=== PATIENT | male | born 1980 | race Caucasian/White ===

== ENCOUNTER → 2018-07-17 | Outpatient (CLI) | payer BC, OTHER ==
[~2018-07-17] VITALS: Ht 182.9 cm; Wt 104.3 kg
[~2018-07-17] MED LIST: NOHOMEMEDICATIONS; XANAX 0.5 MG0.5 MG PO
--- NOTE | ~2018-07-17 | HPC ---
[facility] [place] [address] PAIN MANAGEMENT CONSULTATION Name: YOGI WALKER Room #: REG [facility] Travon.#: [id number] Admission: 07/17/18 Attend Phys: Andrea Nicole MD Discharge: Date of : 84 Report #: [id number] THIS REPORT FOR: //name// CC: Felton Nicole DATE OF SERVICE: 07/17/2018 CHIEF COMPLAINT: Recurrent low back pain with radiculopathy. The patient is a pleasant 37-year-old who I treated successfully with an epidural injection many years ago. He now has recurrent pain into the left hip radiating into the L5 distribution. He has not had a recent MRI. This is a pain that has been bothering him since he was in college. In fact looking through his records, the last x-rays we have are in 2011. He has tried now for several weeks to resolve this pain without benefit of medication or exercise and is here today for hopeful resolution with epidural injection. PHYSICAL EXAMINATION: Blood pressure 133/88, heart rate 72, respirations 16 and O2 sat 97. Pain intensity 5/10. He moves from sitting to standing position and ambulates without difficulty. He has a good range of motion of the lumbar spine. Deep tendon reflexes are normal. Straight leg raising on the left reproduces a radicular pain into the left leg in the L5 distribution. Sensation is intact. Deep tendon reflexes are normal in the knees and ankles. He has a scar around his abdomen from a recent abdominoplasty. IMPRESSION: Chronic recurring low back pain with radiculopathy into the left L4-L5 distribution. RECOMMENDATIONS: 1. Epidural steroid injection under fluoroscopic guidance. 2. Continue with regular exercise including stretching, yoga and aerobic component. PROCEDURE: After informed consent, he was taken to the fluoroscopic suite, placed prone, skin prepped with ChloraPrep. Skin was anesthetized over the L4-L5 interspace to the left of midline. A 20-gauge Tuohy epidural needle advanced first attempt into the epidural space with loss of resistance technique. There was no blood or CSF aspirated. 1 mL of Omnipaque injected. Good spread of dye observed in the epidural space, was followed by 3 mL of 0.5% [address] [address] PAIN MANAGEMENT CONSULTATION Name: YOGI WALKER Room #: REG [facility].#: [id number] Admission: 07/17/18 Attend Phys: Andrea Nicole MD Discharge: Date of : 84 Report #: [id number] lidocaine mixed with 80 mg of triamcinolone. He tolerated the procedure well and was observed for 45 minutes and discharged. Follow up as needed. By: 1620 0108 Andrea Nicole MD /nt
[2018-07-17 13:27] VITALS: BP 133/88
== END | disposition home or self-care (01) ==
LOC: PAIN 08:09
DX: M54.16 Radiculopathy, lumbar region (principal); G89.29 Other chronic pain; Z98.890 Other specified postprocedural states; Z98.52 Vasectomy status; Z88.0 Allergy status to penicillin; Z79.899 Other long term (current) drug therapy

== ENCOUNTER → 2018-09-11 | Outpatient (CLI) | payer BC, OTHER ==
[~2018-09-11] VITALS: Ht 182.9 cm; Wt 112.1 kg
--- NOTE | ~2018-09-11 | HPC ---
[facility] [place] [address] PAIN MANAGEMENT CONSULTATION Name: YOGI WALKER Room #: REG CL ElinaOliviaVikram.#: [id number] Admission: 09/11/18 Attend Phys: Andrea Nicole MD Discharge: Date of : 84 Report #: [id number] THIS REPORT FOR: //name// CC: Felton Nicole DATE OF SERVICE: 09/11/2018 Followup visit for low back pain with radiculopathy. The patient returns to clinic today and would like for me to go over his MRI. I gave him an epidural on 07/17/2018 and an MRI had been ordered. He wants to go over the MRI to make sure that he understands fully what is going on with his low back. I looked at the films first. It is clear that he has desiccation of L4-L5 and L5-S1 disk. There is midline bulging on both disks, which creates a very mild spinal stenosis, but not enough to cause any impingement that I can see on any of the exiting nerve roots, although there is some mild foraminal narrowing. There is plenty of room for nerve roots at every level. He is asymptomatic at this time and I think that there is good likelihood that his pain will remain manageable as long as he is careful with his body mechanics. I did read the impression from [facility] by Dr. Hawkins. He suggested that there is spinal stenosis at L4-L5 and bilateral neural foraminal narrowing, which may affect the exiting nerve roots, it does not. He also notes some mild facet osteoarthritis, which I believe is normal for his age. I reviewed all these findings with evidence. We reviewed his MRI together looking at the films and using a model to demonstrate the findings. I answered all his questions. Certainly, he does not need an injection. I do not plan on seeing him unless the pain recurs. By: 1653 2144 Andrea Nicole MD /nt
[2018-09-11 12:56] VITALS: BP 169/112
--- NOTE | 2018-09-11 12:58 | NUR ---
Pain Clinic Assessment: 1. History of Osteoarthritis: History of Rheumatoid Arthritis: 2. Height: 6 ft. 0 in. 182.9 cm. Weight: 247.2 lb. oz. 112.129 kg. Patient's BMI: 33.5 3. Vital Signs: BP: 169/112 Pulse: 76 Resp: 16 Temp: 02 Sat: 93 ECG Mon: 4. Pain Intensity: 1 5. Fall Risk: Dizziness: N Needs help standing or walking: N Fallen in the last 3 months: N Fall risk comments: 6. Patient on Blood Thinner: None 7. History of Hypertension: N 8. Opioid Therapy greater than 6 weeks: N Opiate Contract Signed: 9. Risk Assessment Tool Provided: LOW O 10. Functional Assessment Tool: 11. Recreational Drug Use: Never Drug Type: Tobacco Use: Never Smoker Tobacco Type: Amount or Packs/day: How Many Years: Alcohol Use: Yes Frequency: Weekly Quant: 1-2
== END ==
LOC: PAIN 07:15
DX: M54.16 Radiculopathy, lumbar region (principal)

== ENCOUNTER → 2018-10-26 | Outpatient (CLI) | payer BC, OTHER ==
[~2018-10-26] VITALS: Ht 182.9 cm; Wt 111.6 kg
--- NOTE | ~2018-10-26 | HPC ---
[facility] [place] [address] PAIN MANAGEMENT CONSULTATION Name: YOGI WALKER Room #: REG CL ElinaOliviaVikram.#: [id number] Admission: 10/26/18 ������������������ Attend Phys: Andrea Nicole MD Discharge: ������������������ Date of : 84 Report #: [id number] THIS REPORT FOR: //name// CC: Felton Nicole DATE OF SERVICE: 10/26/2018 Followup visit for recurrent low back with pain with radiculopathy. The patient returns to the pain clinic today for an epidural injection. I provided him with an epidural injection on 07/17/2018, which provided excellent pain relief for nearly 2 months. Pain is now gradually returning in the same distribution. He describes it as an 8/10 pain worsened by lying flat, sleeping is difficult. He is getting some relief from yoga and stretching. Because of his excellent response to the epidural injection in our previous discussion, he will continue exercise and we hope that this pain will resolve over time. An epidural injection I think is reasonable at this point in time to help with pain and with sleep. He is not using medications for pain other than ggoh-[id number] measures. I reviewed his MRI, which once again shows spinal stenosis at L4-L5 with compression of the traversing L5 nerve roots. The stenosis is due to a 3 mm disk bulging, which is consistent with his symptoms. There is mild to moderate severity of neural foraminal narrowing also involving the L4 nerve roots at that level. Although the majority of symptoms seem to be at the L4-L5 level, there should be also some discussion of the L5-S1 level where there is moderate severity and mild left neural foraminal narrowing affecting the L5 nerve roots as well. PHYSICAL EXAMINATION: VITAL SIGNS: Blood pressure 157/95, heart rate 78 and respirations 16. He is 6 feet tall, 246 pounds for a BMI of 33.4. BACK: There is some tenderness across the low back, pain with forward flexion and extension. Straight leg raising is noted to be mildly positive on the left reproducing radicular pain in the left L5 distribution. IMPRESSION: Chronic low back pain with radiculopathy, left L4-L5 distribution primarily L5. RECOMMENDATIONS: L4-L5 epidural injection under fluoroscopic guidance. PROCEDURE: He was taken to the fluoroscopic suite, placed prone, skin prepped [address] [address] PAIN MANAGEMENT CONSULTATION Name: YOGI WALKER Room #: REG MARY ANNE Clifford#: [id number] Admission: 10/26/18 ������������������ Attend Phys: Andrea Nicole MD Discharge: ������������������ Date of : 84 Report #: [id number] with ChloraPrep. Skin anesthetized over the L4-L5 interspace. A 20-gauge Tuohy epidural needle advanced into the epidural space with loss of resistance technique. There was no blood or CSF aspirated. 1 mL of Omnipaque injected. Good spread of dye observed along the left lateral recess, was followed by 3 mL of 0.5% lidocaine mixed with 80 mg of triamcinolone. He tolerated the procedure well and was observed for 45 minutes and discharged. Followup visit planned in the pain clinic on an as needed basis. No medications were ordered. If pain is not improving, may consider a visit with a neurosurgeon, although I know that he is trying to avoid surgery with hopes that this will continue to improve with time. ��������������������������������������������� ���������������������������������������� By: ��������������������������������������������� 0727 2047 Andrea Nicole MD /nt
[2018-10-26 11:06] VITALS: BP 157/95
--- NOTE | 2018-10-26 11:10 | NUR ---
Pain Clinic Assessment: 1. History of Osteoarthritis: Not Applicable History of Rheumatoid Arthritis: Not Applicable 2. Height: 6 ft. 0 in. 182.9 cm. Weight: 246.0 lb. oz. 111.585 kg. Patient's BMI: 33.4 3. Vital Signs: BP: 157/95 Pulse: 78 Resp: 16 Temp: 02 Sat: 97 ECG Mon: 4. Pain Intensity: 8 5. Fall Risk: Dizziness: N Needs help standing or walking: N Fallen in the last 3 months: N Fall risk comments: 6. Patient on Blood Thinner: None 7. History of Hypertension: N 8. Opioid Therapy greater than 6 weeks: N Opiate Contract Signed: 9. Risk Assessment Tool Provided: LOW O 10. Functional Assessment Tool: 11. Recreational Drug Use: Never Drug Type: Tobacco Use: Never Smoker Tobacco Type: Amount or Packs/day: How Many Years: Alcohol Use: Yes Frequency: Weekly Quant: 6 social
== END | disposition home or self-care (01) ==
LOC: PAIN 08-14 10:23
DX: M54.16 Radiculopathy, lumbar region (principal); G89.29 Other chronic pain; Z98.890 Other specified postprocedural states; Z88.0 Allergy status to penicillin; Z79.899 Other long term (current) drug therapy

== ENCOUNTER → 2019-03-19 | Outpatient (CLI) | payer BC, OTHER ==
[~2019-03-19] VITALS: Ht 182.9 cm; Wt 110.3 kg
--- NOTE | ~2019-03-19 | HPC ---
[facility] [place] [address] PAIN MANAGEMENT CONSULTATION Name: YOGI WALKER Room #: REG Rikki Hitchcock.#: [id number] Admission: 03/19/19 ������������������ Attend Phys: Andrea Nicole MD Discharge: ������������������ Date of : 84 Report #: [id number] THIS REPORT FOR: //name// CC: Felton Nicole DATE OF SERVICE: 03/19/2019 Followup visit for chronic low back pain with radiculopathy secondary to spinal stenosis at L4-L5. The patient returns to pain clinic today for repeat epidural injection. He has had periodic epidural injections dating back to June 2018. His first injection was performed at that time with good results. He had second injection in September. This would be his third injection. Each time, he reports almost complete pain relief for 2 months with gradual resumption of pain. He would like to avoid surgery. MEDICATIONS: Include alprazolam 0.5 mg at bedtime and intermittent OTC NSAID. PHYSICAL EXAMINATION: GENERAL: He is a fit, healthy-appearing 38-year-old. VITAL SIGNS: Blood pressure 142/103, heart rate 78, respirations 16. MUSCULOSKELETAL: Moves from sitting to standing position, ambulates without difficulty. Some pain across his low back. He has stiffness with forward flexion and extension. Positive straight leg raising is noted with reproduction primarily in the right leg. Some tightness is noted there. IMPRESSION: 1. Chronic low back pain with radiculopathy. Pain worse on the left. RECOMMENDATIONS: 1. Epidural steroid injection under fluoroscopic guidance, L4-L5. 2. Continue with exercise. 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 We discussed precautions about exercises that may aggravate his back. DESCRIPTION OF PROCEDURE: Epidural and steroid injection under fluoroscopic guidance. He was taken to fluoroscopic suite, placed prone, skin prepped with ChloraPrep. Skin anesthetized over the L4-L5 interspace. A 20-gauge Tuohy epidural needle advanced first attempt in the epidural space with loss of resistance technique. There was no blood or CSF aspirated. A 1 mL of Omnipaque injected. Good spread of dye observed followed by 3 mL of 0.5% lidocaine mixed [facility] [address] [place] [address] PAIN MANAGEMENT CONSULTATION Name: YOGI WALKER Room #: REG [facility].#: [id number] Admission: 03/19/19 ������������������ Attend Phys: Andrea Nicole MD Discharge: ������������������ Date of : 84 Report #: [id number] with 80 mg triamcinolone. He tolerated the procedure well. He was observed for 45 minutes and discharged. Follow up as needed. ��������������������������������������������� ���������������������������������������� By: ��������������������������������������������� 1640 0853 Andrea Nicole MD /nt
[2019-03-19 14:44] VITALS: BP 142/103
--- NOTE | 2019-03-19 14:47 | NUR ---
Pain Clinic Assessment: 1. History of Osteoarthritis: Not Applicable History of Rheumatoid Arthritis: Not Applicable 2. Height: 6 ft. 0 in. 182.9 cm. Weight: 243.2 lb. oz. 110.315 kg. Patient's BMI: 33.0 3. Vital Signs: BP: 142/103 Pulse: 78 Resp: 16 Temp: 02 Sat: 96 ECG Mon: 4. Pain Intensity: 3 5. Fall Risk: Dizziness: N Needs help standing or walking: N Fallen in the last 3 months: N Fall risk comments: 6. Patient on Blood Thinner: None 7. History of Hypertension: N 8. Opioid Therapy greater than 6 weeks: N Opiate Contract Signed: 9. Risk Assessment Tool Provided: LOW O 10. Functional Assessment Tool: 11. Recreational Drug Use: Never Drug Type: Tobacco Use: Never Smoker Tobacco Type: Amount or Packs/day: How Many Years: Alcohol Use: No Frequency: Quant:
== END | disposition home or self-care (01) ==
LOC: PAIN 06:59
DX: M54.16 Radiculopathy, lumbar region (principal); G89.29 Other chronic pain; M48.061 Spinal stenosis, lumbar region without neurogenic claudication; Z79.899 Other long term (current) drug therapy; Z88.0 Allergy status to penicillin

== ENCOUNTER → 2019-09-03 | Outpatient (CLI) | payer BC, OTHER ==
[~2019-09-03] VITALS: Ht 182.9 cm; Wt 112.9 kg
[~2019-09-03] MED LIST changes: +XANAX 0.5 MG0.5 M1 PO
--- NOTE | ~2019-09-03 | HPC ---
[facility] [address] [address] [place] [address] PAIN MANAGEMENT CONSULTATION Name: YOGI WALKER Room #: REG CLRikki AntoineOliviaVikram.#: [id number] Admission: 09/03/19 Attend Phys: Andrea Nicole MD Discharge: Date of : 84 Report #: [id number] THIS REPORT FOR: //name// CC: Felton Nicole DATE OF SERVICE: 09/03/2019 REASON FOR VISIT: Followup visit for lumbar radiculopathy due to spinal stenosis, L4-L5. SUBJECTIVE: The patient returns to the Pain Clinic today and would like an epidural injection. His last injection was in February and he had good relief for nearly 4 months. Pain is once again in his low back, radiates a bit more to the left than the right today. We reviewed his MRI findings from the past and the spinal stenosis. We reviewed his injections and his response. He tells me that he is going to take a sabbatical from his work. He is going to take an entire year off and go live in [facility]. He is going on his own. We discussed management of this with nonsteroidal anti-inflammatory drugs and other medications while he is on his trip. Hopefully, that will be helpful. PHYSICAL EXAMINATION: GENERAL: He is 6 feet tall, BMI is 33.8. He knows he is overweight and would like to lose some weight, and understands it may affect his pain in his low back as well. This is roughly the size he has been since he has been seeing us, dating back into 2017. VITAL SIGNS: Blood pressure is 141/102, heart rate 79, respirations 15. He will follow with Dr. Concepcion. MUSCULOSKELETAL: Examination of the back reveals tenderness across the lumbosacral segment, pain with forward flexion and extension. Straight leg raising is mildly positive. IMAGING: MRI shows spinal stenosis at L4-L5 with compression of the traversing L5 nerve roots. PROCEDURE: L4-L5 epidural under fluoroscopic guidance. DESCRIPTION OF PROCEDURE: After informed consent, he was taken to the fluoroscopic suite, placed prone. Skin was prepped with ChloraPrep, skin anesthetized over the L4-L5 interspace. A 20-gauge Tuohy epidural needle was advanced at first attempt in the epidural space with loss of resistance technique. There was no blood or CSF aspirated. A 1 mL of Omnipaque was [address] [address] PAIN MANAGEMENT CONSULTATION Name: DENISEYOGI KELLY Room #: REG MARY ANNE Clifford#: [id number] Admission: 09/03/19 Attend Phys: Andrea Nicole MD Discharge: Date of : 84 Report #: [id number] injected, good spread of dye was observed in the epidural space. This was followed by 3 mL of 0.5% lidocaine mixed with 80 mg of triamcinolone. He tolerated the procedure well, was observed for 45 minutes and discharged. Followup visit planned on an as needed basis. By: 1748 0041 Andrea Nicole MD /chacha
[2019-09-03 12:47] VITALS: BP 141/102
--- NOTE | 2019-09-03 12:54 | NUR ---
Pain Clinic Assessment: 1. History of Osteoarthritis: DENIES History of Rheumatoid Arthritis: DENIES 2. Height: 6 ft. 0 in. 182.9 cm. Weight: 249.0 lb. oz. 112.946 kg. Patient's BMI: 33.8 3. Vital Signs: BP: 141/102 Pulse: 79 Resp: 15 Temp: 02 Sat: 99 ECG Mon: 4. Pain Intensity: 4 5. Fall Risk: Dizziness: N Needs help standing or walking: N Fallen in the last 3 months: N Fall risk comments: 6. Patient on Blood Thinner: None 7. History of Hypertension: N 8. Opioid Therapy greater than 6 weeks: N Opiate Contract Signed: 9. Risk Assessment Tool Provided: LOW O 10. Functional Assessment Tool: 11. Recreational Drug Use: Never Drug Type: Tobacco Use: Never Smoker Tobacco Type: Amount or Packs/day: How Many Years: Alcohol Use: Yes Frequency: Weekly Quant:
== END | disposition home or self-care (01) ==
LOC: PAIN 06:56
DX: M54.16 Radiculopathy, lumbar region (principal); M48.061 Spinal stenosis, lumbar region without neurogenic claudication; E66.3 Overweight; Z68.33 Body mass index [BMI] 33.0-33.9, adult; Z88.0 Allergy status to penicillin; Z79.899 Other long term (current) drug therapy

== ENCOUNTER → 2020-02-21 | Outpatient (CLI) | payer BC, OTHER ==
[~2020-02-21] VITALS: Ht 182.9 cm; Wt 114.3 kg
[2020-02-21 13:25] VITALS: BP 145/101
--- NOTE | 2020-02-21 13:36 | NUR ---
Pain Clinic Assessment: 1. History of Osteoarthritis: DENIES History of Rheumatoid Arthritis: DENIES 2. Height: 6 ft. 0 in. 182.9 cm. Weight: 252.0 lb. oz. 114.307 kg. Patient's BMI: 34.2 3. Vital Signs: BP: 145/101 Pulse: 95 Resp: 18 Temp: 02 Sat: 95 ECG Mon: 4. Pain Intensity: 3 5. Fall Risk: Dizziness: N Needs help standing or walking: N Fallen in the last 3 months: N Fall risk comments: 6. Patient on Blood Thinner: None 7. History of Hypertension: N 8. Opioid Therapy greater than 6 weeks: N Opiate Contract Signed: 9. Risk Assessment Tool Provided: LOW 3 10. Functional Assessment Tool: 11. Recreational Drug Use: Never Drug Type: Tobacco Use: Never Smoker Tobacco Type: Amount or Packs/day: How Many Years: Alcohol Use: Yes Frequency: Weekly Quant: 1-5
--- NOTE | 2020-02-22 15:51 | HPC ---
[facility] [place] [address] PAIN MANAGEMENT CONSULTATION Name: YOGI WALKER Room #: REG MARY ANNE TravonVikramOlivia#: [id number] Admission: 02/21/20 Attend Phys: Andrea Nicole MD Discharge: Date of : 84 Report #: [id number] THIS REPORT FOR: cc: Felton Concepcion III, MD, III,Felton Nicole,Andrea Acosta MD ~ CC: Felton Nicole DATE OF SERVICE: 02/21/2020 Followup visit for lumbar radiculopathy. The patient returns to pain clinic today for an epidural injection. He has spinal stenosis and has been responsive to injections. He is on a sabbatical year. He left his job in order to travel the world. He is spending time in [place] and on his flight home had significant increase in his radicular symptoms. He returned back to the [place]. At that point in time, we were holding off on elective procedures. He found Dr. Elan Guadarrama who gave him an epidural injection for ____ clinic. This helped quite a bit, but the pain is now returning and the patient plans on taking off again. He has found flights that will take him into the [facility] where he plans to ____ period of the COVID-19 restrictions. He would like another epidural injection. I have reviewed his MRI findings in the past and his spinal stenosis, his prior injections at L4-5 and I have felt it is reasonable to go ahead with this injection to help him with his travels. Pain intensity is 3/10, mostly in his back, does radiate down both legs. MEDICATIONS: Alprazolam is his only scheduled medication provided for him by Dr. Hess. PHYSICAL EXAMINATION: GENERAL: Pleasant gentleman, 6 feet tall, 252 pounds, BMI 34.2. VITAL SIGNS: Blood pressure 145/101, respirations 18, pulse 95. MUSCULOSKELETAL: Moves independently from sitting to standing position. Mild pain across the lumbosacral segment. Straight leg raising is mildly positive. IMPRESSION: Lumbar radiculopathy, L4-L5. PROCEDURE: Epidural steroid injection under fluoroscopic guidance.. PROCEDURE NOTE: After both written and informed consent to include risk of [address] [address] PAIN MANAGEMENT CONSULTATION Name: YOGI WALKER Room #: REG [facility].#: [id number] Admission: 02/21/20 Attend Phys: Andrea Nicole MD Discharge: Date of : 84 Report #: [id number] spinal cord damage, increased pain, weakness and dural puncture, the patient was taken to the fluoroscopy suite, placed in the prone position. After sterile prep and drape, a skin wheal with lidocaine was raised. A 22-gauge epidural Tuohy needle was inserted in the midline at L4-L5 with good loss to resistance. Negative aspiration for cerebrospinal fluid or blood was noted. Then 1 mL of Omnipaque under biplanar fluoroscopy showed good spread within the epidural space. This was followed with 3 mL of 0.5% lidocaine and 80 mg of triamcinolone. The patient was monitored for an appropriate period of time and discharged in good and stable condition. Follow up as needed. <ELECTRONICALLY SIGNED> By: Andrea Nicole MD 02/22/20 1551 [id number] 1544 Andrea Nicole MD /nt
== END | disposition home or self-care (01) ==
LOC: PAIN 12-17 12:40
PROVIDERS: ATTEND Anesthesiology Pain Medicine
DX: M54.16 Radiculopathy, lumbar region (principal); M48.061 Spinal stenosis, lumbar region without neurogenic claudication; G89.29 Other chronic pain; Z98.890 Other specified postprocedural states; Z79.899 Other long term (current) drug therapy; Z88.0 Allergy status to penicillin

== ENCOUNTER → 2020-06-02 | Outpatient (CLI) | payer BC, OTHER ==
[~2020-06-02] VITALS: Ht 182.9 cm; Wt 111.0 kg
[~2020-06-02] MED LIST changes: +ADVIL200 M3 PO; +GLUCOSAMINE CH1 EAC2 PO
--- NOTE | ~2020-06-02 | HPC ---
[facility] [place] [address] PAIN MANAGEMENT CONSULTATION Name: YOGI WALKER Room #: REG MARY ANNE AntoineOliviaVikram.#: [id number] Admission: 06/02/20 Attend Phys: Andrea Nicole MD Discharge: Date of : 84 Report #: [id number] CC: Benito Nicole DATE OF SERVICE: 06/02/2020 Followup visit for lumbar radiculopathy. The patient was here in January for a lumbar epidural injection. He gets about 12-15 weeks of excellent pain relief following the injection. He would like to repeat the injection today. He is traveling the world and plans to move to [facility] for 5 years!. His symptoms are still the same, radicular in nature, radiating both into the right and left leg. He has an interesting presentation. The right leg is worse at night when he is sleeping and also when he is sitting. When he is walking, the pain tends to shoot into the left leg and follows in L5-S1 radicular distribution. His only medication is ibuprofen, which he takes about 3 times a week, 800 mg. PHYSICAL EXAMINATION: GENERAL: He is pleasant, fit-appearing gentleman who has been doing some weight lifting. VITAL SIGNS: His blood pressure is 156/99, heart rate 88, respirations 16. MUSCULOSKELETAL: Moves independently from sitting to standing position. His gait is nonantalgic. He has bilateral discomfort with straight leg raising and tightness in the back of the calves. Sensation is intact. Pain score is reported at today's visit as a 7-8/10. IMPRESSION: Lumbar radiculopathy. He has had good response to epidural injections and would like to avoid surgery and any stronger medication. By: 1504 25 Andrea Nicole MD /nt
--- NOTE | ~2020-06-02 | P ---
[facility] Awa Olivarez [place] [address] PROCEDURE REPORT Name: YOGI WALKER Room #: [facility] M..#: [id number] Admission: 06/02/20 Attend Phys: Andrea Nicole MD Discharge: Date of : 84 Report #: [id number] THIS REPORT FOR: cc: Benito Bhatti MD, Benito Nicole,Andrea Acosta MD ~ CC: Benito Nicole DATE OF SERVICE: 06/02/2020 PROCEDURE: L4-L5 epidural injection under fluoroscopic guidance. PROCEDURE NOTE: After both written and informed consent to include risk of spinal cord damage, increased pain, weakness and dural puncture, the patient was taken to the fluoroscopy suite, placed in the prone position. After sterile prep and drape, a skin wheal with lidocaine was raised. A 22-gauge epidural Tuohy needle was inserted in the midline at ____ with good loss to resistance. Negative aspiration for cerebrospinal fluid or blood was noted. Then 1 mL of Omnipaque under biplanar fluoroscopy showed good spread within the epidural space. This was followed with 80 mg of triamcinolone plus 1 mL of 1.5% preservative-free Xylocaine, 0.5 mL Xylocaine was then injected to flush the needle; it was removed. The patient was monitored for an appropriate period of time and discharged in good and stable condition. By: [id number] Andrea Nicole MD /chacha
[2020-06-02 14:13] VITALS: BP 156/99
--- NOTE | 2020-06-02 14:34 | NUR ---
Pain Clinic Assessment: 1. History of Osteoarthritis: DENIES History of Rheumatoid Arthritis: DENIES 2. Height: 6 ft. 0 in. 182.9 cm. Weight: 244.6 lb. oz. 110.950 kg. Patient's BMI: 33.2 3. Vital Signs: BP: 156/99 Pulse: 80 Resp: 16 Temp: 02 Sat: 100 ECG Mon: 4. Pain Intensity: 5 now, 7-8 in am 5. Fall Risk: Dizziness: N Needs help standing or walking: N Fallen in the last 3 months: N Fall risk comments: 6. Patient on Blood Thinner: None 7. History of Hypertension: N 8. Opioid Therapy greater than 6 weeks: N Opiate Contract Signed: 9. Risk Assessment Tool Provided: LOW 3 10. Functional Assessment Tool: 11. Recreational Drug Use: Never Drug Type: Tobacco Use: Never Smoker Tobacco Type: Amount or Packs/day: How Many Years: Alcohol Use: Yes Frequency: Quant:
== END ==
LOC: PAIN 07:08
PROVIDERS: ATTEND Anesthesiology Pain Medicine
DX: M54.16 Radiculopathy, lumbar region (principal); Z79.899 Other long term (current) drug therapy; Z72.89 Other problems related to lifestyle